=== PATIENT | male | born 1955 | race Two or more races ===

== ENCOUNTER 2021-09-05 07:29 | Outpatient (CLI) | payer OTHER | END 2021-09-05 07:36 | disposition home or self-care (01) | LOC: NUCLEAR 07:29 | PROVIDERS: ATTEND Internal Medicine | DX: I20.9 Angina pectoris, unspecified (principal) | CPT/HCPCS: 78452; 93017; A9500; J0153 ==

== ENCOUNTER 2022-02-20 04:32 | Emergency (ER) | payer OTHER ==
[~2022-02-20] VITALS: Ht 172.7 cm; Wt 125.2 kg
[2022-02-20] MEDS ORDERED: COZAAR25 MG (04:53)
[2022-02-20] MEDS ORDERED: TENORMIN25 MG (04:53)
[2022-02-20] MEDS ORDERED: GLIMEPIRIDE2 M1 (04:53)
[2022-02-20] MEDS ORDERED: SYNTHROID175 MCG (04:54)
[2022-02-20] MEDS ORDERED: VITAMIN B-125000 MCG (04:54)
[2022-02-20] MEDS ORDERED: FOLIC ACID1 MG (04:54)
[2022-02-20] MEDS ORDERED: DITROPAN XL10 MG (04:55)
[2022-02-20] MEDS ORDERED: MEDROL8 MG PO (06:45)
[2022-02-20] MEDS ORDERED: PEPCID40 MG PO (06:45)
[2022-02-20] MEDS ORDERED: DIPHENHYDRAMINE50 M1 PO (06:45)
== END 2022-02-20 06:51 | disposition home or self-care (01) ==
LOC: ER 04:32
DX: T50.995A Adverse effect of other drugs, medicaments and biological substances, initial encounter (principal); Y92.9 Unspecified place or not applicable; Z88.2 Allergy status to sulfonamides; E11.9 Type 2 diabetes mellitus without complications; Z79.84 Long term (current) use of oral hypoglycemic drugs; I10 Essential (primary) hypertension

== ENCOUNTER 2022-05-05 11:50 | Outpatient (CLI) | payer OTHER ==
[~2022-05-05 11:50] MED LIST: COZAAR25 MG; DIPHENHYDRAMINE50 M1 PO; DITROPAN XL10 MG; FOLIC ACID1 MG; GLIMEPIRIDE2 M1; MEDROL8 MG PO; PEPCID40 MG PO; SYNTHROID175 MCG; TENORMIN25 MG; VITAMIN B-125000 MCG
== END 2022-05-05 13:46 | disposition home or self-care (01) ==
LOC: RAD 11:50
PROVIDERS: ATTEND Specialist
DX: J45.998 Other asthma (principal)

== ENCOUNTER 2022-06-15 17:16 | Emergency (ER) | payer OTHER ==
[~2022-06-15] VITALS: Ht 172.7 cm; Wt 117.9 kg
== END 2022-06-15 23:22 | disposition home or self-care (01) ==
LOC: ER 17:16
DX: M94.0 Chondrocostal junction syndrome [Tietze] (principal); R51.9 Headache, unspecified; Z88.2 Allergy status to sulfonamides; Z88.6 Allergy status to analgesic agent

== ENCOUNTER → 2022-08-31 | Outpatient (CLI) | payer OTHER | END | disposition home or self-care (01) | LOC: NUCLEAR 08:49 | PROVIDERS: ATTEND Podiatrist | DX: E11.51 Type 2 diabetes mellitus with diabetic peripheral angiopathy without gangrene (principal); Z88.2 Allergy status to sulfonamides; Z88.6 Allergy status to analgesic agent; Z88.5 Allergy status to narcotic agent ==

== ENCOUNTER 2022-09-04 15:11 | Outpatient (CLI) | payer OTHER | END 2022-09-04 15:16 | disposition home or self-care (01) | LOC: NUCLEAR 15:11 | DX: E11.51 Type 2 diabetes mellitus with diabetic peripheral angiopathy without gangrene (principal) ==

== ENCOUNTER 2023-05-12 07:07 | Outpatient (CLI) | payer OTHER | END 2023-05-12 07:08 | disposition home or self-care (01) | LOC: NUCLEAR 07:07 | PROVIDERS: ATTEND Specialist | DX: M87.052 Idiopathic aseptic necrosis of left femur (principal); M87.051 Idiopathic aseptic necrosis of right femur; S32.000A Wedge compression fracture of unspecified lumbar vertebra, initial encounter for closed fracture | CPT/HCPCS: 78315; A9503 ==

== ENCOUNTER 2023-06-18 08:10 | Outpatient (CLI) | payer OTHER | END 2023-06-18 08:11 | disposition home or self-care (01) | LOC: LAB 08:10 | PROVIDERS: ATTEND Internal Medicine Gastroenterology | DX: Z20.822 Contact with and (suspected) exposure to COVID-19 (principal); Z20.828 Contact with and (suspected) exposure to other viral communicable diseases; Z11.52 Encounter for screening for COVID-19 ==

== ENCOUNTER 2024-03-07 08:55 | Outpatient (CLI) | payer OTHER | END 2024-03-07 09:30 | disposition home or self-care (01) | LOC: NUCLEAR 08:55 | PROVIDERS: ATTEND Thoracic Surgery (Cardiothoracic Vascular Surgery) | DX: I87.2 Venous insufficiency (chronic) (peripheral) (principal) ==

== ENCOUNTER → 2025-06-04 10:52 | Outpatient (CLI) | payer OTHER | END | disposition home or self-care (01) | LOC: NUCLEAR 10:52 | PROVIDERS: ATTEND Specialist | DX: I82.403 Acute embolism and thrombosis of unspecified deep veins of lower extremity, bilateral (principal); I87.2 Venous insufficiency (chronic) (peripheral) ==

== ENCOUNTER 2025-07-20 08:01 | Outpatient (CLI) | payer OTHER | END 2025-07-20 08:02 | disposition home or self-care (01) | LOC: NUCLEAR 08:01 | DX: I73.9 Peripheral vascular disease, unspecified (principal) ==